=== PATIENT | female | born 1940 | race Caucasian/White ===

== ENCOUNTER 2016-05-17 13:48 | Emergency (ER) | payer MEDICARE, OTHER ==
[~2016-05-17 13:48] MED LIST: Sodium Chloride 0.9% 1,000 ML BAG ONE; Sodium Chloride 0.9% 100 ML BAG ONE
[2016-05-17 14:18] LABS: #Lymphocytes 1.1 thou/uL (1.20-3.40); #Monocytes 0.6 thou/uL (0.11-0.59); #Neutrophils 10.5 thou/uL (1.40-6.50); %Basophils 0.2 % (0.0-1.0); %Lymphocytes 9.1 % (21.0-51.0); %Monocytes 4.5 % (0.0-10.0); %Neutrophils 86.1 % (42.0-75.0); Hemoglobin 13.9 g/dL (12.0-16.0); Mean Corpuscular Hemoglobin 30.6 pg (27.0-31.0); Mean Corpuscular Volume 90.2 fl (81.0-99.0); Mean Platelet Volume 8.5 fL (7.4-10.4); Platelet Count 289 thou/uL (130-400); RBC Distribution Width 12.8 % (11.5-14.5); Red Blood Cell (RBC) Count 4.52 mill/uL (4.20-5.40); White Blood Cell (WBC) Count 12.2 thou/uL (4.8-10.8)
[2016-05-17] MEDS ORDERED: Diphenoxylate HCl/Atropine Tablet ONE (14:35)
[2016-05-17 14:42] LABS: ALT (SGPT) 9 U/L (0-55); AST (SGOT) 13 U/L (5-34); Albumin 3.6 g/dL (3.4-4.8); Alkaline Phosphatase 103 U/L (40-150); Anion Gap 17 mmol/L (10-20); BUN (Urea Nitrogen) 34 mg/dL (9.8-20.1); Bilirubin, Total 0.5 mg/dL (0.2-1.2); Calc. Creatinine Clearance 0 mL/min (70-130); Calcium 10.1 mg/dL (7.8-10.44); Carbon Dioxide 26 mmol/L (23-31); Chloride 102 mmol/L (98-107); Estimated GFR-MDRD 35; Globulin 4.1 g/dL (2.4-3.5); Glucose 117 mg/dL (83-110); Potassium 4.4 mmol/L (3.5-5.1); Protein, Total 7.7 g/dL (5.8-8.1); Sodium 141 mmol/L (136-145)
[2016-05-17] MEDS ORDERED: Phenergan/Codeine 10-6.25mg/5ml UDCUP ONE (15:13)
[2016-05-17] MEDS ORDERED: AMOXicillin 250 MG CAP ONE (15:14)
[2016-05-17] MEDS ORDERED: cefTRIAXone\\ROCEPHIN 1 GM VIAL ONE (15:14)
--- NOTE | 2016-05-17 16:42 | RAD ---
PORTABLE CHEST: History: Cough. Comparison: 08-15-15 FINDINGS: Heart size is enlarged. There is mild vascular engorgement. Some bibasilar interstitial change, pr obably largely on the basis of atelectasis. A dorsal column stimulator is present. IMPRESSION: Cardiomegaly with mild vascular engorgement and bibasilar lung change suggestive of atelectasis. POS: [facility]
--- NOTE | 2016-05-17 16:58 | RAD ---
LEFT KNEE FOUR VIEWS: History: Joint pain. FINDINGS: Total knee prosthesis is in satisfactory position without evidence of loosening or fracture. IMPRESSION: Total knee prosthesis in place. POS: [facility]
--- NOTE | 2016-05-17 16:58 | RAD ---
LEFT FOOT THREE VIEWS: History: Injury. FINDINGS: Comminuted fracture of the middle phalanx of the fourth toe is noted. Some deformity to the metatar katie phalangeal joint of the second and third toes subluxation but no definite acute injury. Deformi ty to the PIP join of the second toe is also probably related to chronic change. Vascular calcifica tions are seen. IMPRESSION: Comminuted fracture of the middle phalanx of the fourth toe. POS: [facility]
== END 2016-05-17 18:25 ==
LOC: MADERS 13:48
DX: J20.9 Acute bronchitis, unspecified (principal); S92.502A Displaced unspecified fracture of left lesser toe(s), initial encounter for closed fracture; I11.0 Hypertensive heart disease with heart failure; I50.9 Heart failure, unspecified; M25.562 Pain in left knee; I48.91 Unspecified atrial fibrillation; D64.9 Anemia, unspecified; K21.9 Gastro-esophageal reflux disease without esophagitis; E78.5 Hyperlipidemia, unspecified; M81.0 Age-related osteoporosis without current pathological fracture; F03.90 Unspecified dementia, unspecified severity, without behavioral disturbance, psychotic disturbance, mood disturbance, and anxiety; I73.9 Peripheral vascular disease, unspecified; F32.9 Major depressive disorder, single episode, unspecified; K50.90 Crohn's disease, unspecified, without complications; Z79.82 Long term (current) use of aspirin; Z79.52 Long term (current) use of systemic steroids; Z79.899 Other long term (current) drug therapy; X58.XXXA Exposure to other specified factors, initial encounter
CPT/HCPCS: 71010; 80053; 83880; 85025; 87040; 87149; 96361; 96365; J0696; J7050

== ENCOUNTER 2016-09-04 14:26 | Outpatient (CLI) | payer MEDICARE, OTHER ==
--- NOTE | 2016-09-07 07:31 | CT ---
CT OF THE LEFT SHOULDER WITHOUT CONTRAST 09/04/16 COMPARISON: None. HISTORY: Left shoulder pain. TECHNIQUE: Multiple contiguous axial images were obtained in a CT of the left shoulder without contrast. Sagitt al and coronal reformats were performed. FINDINGS: The patient is status post left shoulder arthroplasty. No obvious perihardware lucency is seen surro unding the humeral component of the prosthesis or along the glenoid component of the prosthesis. No dislocation of the prosthesis is seen. No soft tissue swelling or fluid collection is seen in the soft tissues. The visualized left thorax is unremarkable. IMPRESSION: Status post left shoulder arthroplasty without evidence of complication. POS: [facility]
== END 2016-09-04 14:27 | disposition home or self-care (01) ==
LOC: MADCT 14:26
DX: M25.512 Pain in left shoulder (principal); Z96.612 Presence of left artificial shoulder joint

== ENCOUNTER 2017-12-27 16:08 | Outpatient (CLI) | payer MEDICARE ==
--- NOTE | 2017-12-27 16:49 | CT ---
CERVICAL SPINE CT SCAN WITHOUT IV CONTRAST: FINDINGS: There is heterogeneous bony demineralization. There are generalized disk osteophytosis and facet art hrosis changes. There are anterior cervical fusion changes at C6-C7. C2-C3: Unremarkable. C3-C4: There is prominent disk osteophyte with some mild lateral recess stenosis and moderate to sev ere bilateral foraminal stenosis. C4-C5: There is mild disk osteophyte with moderate to severe right foraminal stenosis. C5-C6: There is moderate bilateral foraminal stenosis with mild lateral recess narrowing. C6-C7: There is mild to moderate bilateral foraminal stenosis and mild lateral recess stenosis. C7-T1: There is no significant canal or foraminal stenosis. There appear to be fusion changes of C4 , C5, and C6, as well as T1 and T2, in addition to the postoperative changes at C6-C7. No overt acut e fracture or dislocation. IMPRESSION: Multilevel fusion changes, including anterior cervical fusion changes at C6-C7, with multilevel varia ble severity canal, lateral recess, and foraminal stenosis, most marked at C3-C4. POS: [facility]
== END 2017-12-27 16:09 | disposition home or self-care (01) ==
LOC: MADCT 16:08
PROVIDERS: ATTEND Neurological Surgery
DX: M54.12 Radiculopathy, cervical region (principal); M48.02 Spinal stenosis, cervical region; M99.81 Other biomechanical lesions of cervical region; Z98.1 Arthrodesis status
CPT/HCPCS: 72125